=== PATIENT | male | born 1970 | race Asian ===

== ENCOUNTER 2020-07-28 19:50 | Emergency (ER) | payer MEDICAID ==
[~2020-07-28] VITALS: Ht 160 cm; Wt 63.0 kg
--- NOTE | 2020-07-29 00:07 | PHYS DOC ---
Past Medical History Past Medical History: No Pertinent History Past Surgical History: No Surgical History Smoking Status: Never Smoker Alcohol Use: Occasionally General Adult EDM: Chief Complaint: COUGH HPI: HPI: Patient is a 50 year old male who is on no prescription medications presents for evaluation of cough. Patient states he had a cough without sputum production for 1 month. Patient states over the last 4 days he has had a cough with sputum production. Patient denies any fever chills runny nose stuffy nose chest pain or shortness of breath. On exam patient's vital signs are stable he is not hypoxic with oxygen saturations 100% on room air. Review of Systems: Review of Systems: Constitutional: Denies fever or chills. [] Eyes: Denies change in visual acuity. [] HENT: Denies nasal congestion or sore throat. [] Respiratory: Denies shortness of breath. [Positive cough] Cardiovascular: Denies chest pain or edema. [] GI: Denies abdominal pain, nausea, vomiting, bloody stools or diarrhea. [] : Denies dysuria. [] Musculoskeletal: Denies back pain or joint pain. [] Integument: Denies rash. [] Neurologic: Denies headache, focal weakness or sensory changes. [] Endocrine: Denies polyuria or polydipsia. [] Lymphatic: Denies swollen glands. [] Psychiatric: Denies depression or anxiety. [] Heart Score: Risk Factors: Risk Factors: DM, Current or recent (<one month) smoker, HTN, HLP, family history of CAD, obesity. Risk Scores: Score 0 - 3: 2.5% MACE over next 6 weeks - Discharge Home Score 4 - 6: 20.3% MACE over next 6 weeks - Admit for Clinical Observation Score 7 - 10: 72.7% MACE over next 6 weeks - Early Invasive Strategies Physical Exam: PE: Constitutional: Well developed, well nourished, no acute distress, non-toxic appearance. [] HENT: Normocephalic, atraumatic, bilateral external ears normal, oropharynx moist, no oral exudates, nose normal. [] Eyes: PERRLA, EOMI, conjunctiva normal, no discharge. [] Neck: Normal range of motion, no tenderness, supple, no stridor. [] Cardiovascular:Heart rate regular rhythm, no murmur [] Lungs & Thorax: Bilateral breath sounds clear to auscultation [] Abdomen: Bowel sounds normal, soft, no tenderness, no masses, no pulsatile masses. [] Skin: Warm, dry, no erythema, no rash. [] Back: No tenderness, no CVA tenderness. [] Extremities: No tenderness, no cyanosis, no clubbing, ROM intact, no edema. [] Neurologic: Alert and oriented X 3, normal motor function, normal sensory function, no focal deficits noted. [] Psychologic: Affect normal, judgement normal, mood normal. [] Current Patient Data: Vital Signs: Vital Signs Date Time Temp Pulse Resp B/P (MAP) Pulse Ox O2 Delivery O2 Flow Rate FiO2 07/28/20 21:10 97.9 84 16 108/69 (82) 98 Room Air 97.9 EKG: EKG: [] Radiology/Procedures: Radiology/Procedures: [] Impression: martita view of chest obtained. Mild interstitial prominence bilaterally. Cardiac mediastinal silhouette is mildly prominent but likely exaggerated by portable technique. No gross osseous destructive lesion. IMPRESSION: * Mild interstitial prominence bilaterally. Mild pulmonary vascular congestion or interstitial infiltrate could have this appearance. Course & Med Decision Making: Course & Med Decision Making Pertinent Labs and Imaging studies reviewed. (See chart for details) [] Patient was evaluated for chief complaint. Work-up consisted of laboratory analysis and radiologic imaging. X-ray infiltrate versus vascular congestion. Covid test obtained and pending BNP within normal limits. Patient was discharged home with Zithromax and Robitussin with codeine. Patient given COVID-19 PUI precautions. Gayla Disclaimer: Gayla Disclaimer: This electronic medical record was generated, in whole or in part, using a voice recognition dictation system. Departure Departure Impression: Primary Impression: Cough Additional Impression: Person under investigation for COVID-19 Disposition: 01 DC HOME SELF CARE/HOMELESS Condition: STABLE Referrals: NO PCP (PCP) Patient Instructions: Cough, Adult, Viral Syndrome Additional Instructions: You have been tested for or diagnosed with COVID-19. It is an infection caused by a new type of coronavirus. COVID-19 will cause cold-like or mild flu symptoms in most. It can cause more severe symptoms like problems breathing in some. There is no treatment for COVID-19. The body will clear the infection over time. Self-care will help to ease discomfort. Steps to Take: Self-Care Rest as needed. Healthy habits may help you feel better. Steps include: Choose healthy foods including fruits and vegetables. Drink water throughout the day. Get plenty of sleep each night. If you smoke, try to quit. It may ease breathing. Avoid alcohol. Keep Others Healthy The virus can spread to others. Droplets are released every time you sneeze or cough. The droplets can get into the mouth, nose, or eyes of people near you and lead to infection. To lower the chances of spreading COVID-19 to others: Stay at home until your doctor has said it is safe to leave. If you tested positive this will mean staying isolated until both of the following are true: At least 7 days have passed since the start of illness. You are free of fever for at least 72 hours without the use of medicine. During this time: - Avoid public areas, events, or transportation. Do not return to work or school until your doctor has said it is safe to do so. - Call ahead if you need to go to a medical center. Let them know you may have COVID-19. It will help them guide you where to go. They may also ask you to wear a facemask when you come to the office. - If you call for emergency medical services, let them know you may have COVID- 19. While at home: - Try to avoid close contact with others. Stay about 6 feet away. - If possible, spend most of your time in a separate room from others. - Use a face mask if you will be in close contact with others such as sharing a room or vehicle. - Have someone wipe down common surfaces in the home. Use household territory account manager every day on areas like doorknobs, counters, or sinks. - Cough or sneeze into a tissue. Throw the tissue away right after use. If a tissue is not available, cough or sneeze into your elbow. - Wash your hands often. Wash them after sneezing or coughing. Use soap and w ater and wash for at least 20 seconds. Alcohol based hand bus cleaner can be used if soap and water is not available. - Do not prepare food for others. Avoid sharing personal items like forks, spoons, or toothbrushes. - Avoid close contact with pets while you are sick. There is no evidence of the virus passing to pets. This is a safety step until more is known about this virus. Isolation can be frustrating. Social interaction can help. Keep in touch with friends and family through phone and tech options. You can still interact with others in your home, just keep a safe distance of about 6 feet. Follow-up: Your doctors office will check in with you to see if there are any changes in your health. You may be asked to keep track of symptoms to share with them. They will also let you know when you are clear to be in public again. Problems to Look Out For: Contact your doctor if your recovery is not going as you expect. Get emergency care if you have problems such as: - Trouble breathing - Nonstop chest pain or pressure - Changes in awareness, confusion, or problems waking - Lips or face have bluish color - Worsening of symptoms If you think you have an emergency, call for emergency medical services right away. As taken from [facility] [place] Health Scripts Guaifenesin/Codeine Phosphate (Codeine-Guaifen 10-100 mg/5 ml) 120 Ml Liquid 5 ML PO PRN Q6HRS PRN for cough and congestion MDD 20 Milliliter(s) for 6 Days, #120 ML 0 Refills Prov: JOSIANE FERNÁNDEZ I DO 07/29/20 Azithromycin (ZITHROMAX) 250 Mg Tablet 1 PKG PO UD, #6 TAB Prov: JOSIANE FERNÁNDEZ I DO 07/29/20 JOSIANE FERNÁNDEZ I DO Jul 29, 2020 00:07
--- NOTE | 2020-07-29 00:41 | RAD ---
INDICATION: Reason: COUGH / Spl. Instructions: / History: COMPARISON: February 2009 FINDINGS: Single view of chest obtained. Mild interstitial prominence bilaterally. Cardiac mediastinal silhouette is mildly prominent but like ly exaggerated by portable technique. No gross osseous destructive lesion. IMPRESSION: * Mild interstitial prominence bilaterally. Mild pulmonary vascular congestion or interstitial infil trate could have this appearance. Electronically signed by: Johan Sellers MD (07/29/2020 12:39 AM) [id number]
[2020-07-29 01:30] LABS: BASO # 0.1 x10^3/uL (0.0-0.2); BASO % 1 % (0-3); EOS # 1.2 x10^3/uL (0.0-0.7); EOS % 14 % (0-3); HEMATOCRIT 45.1 % (39.0-53.0); HEMOGLOBIN 15.5 g/dL (13.0-17.5); LYMPH # 2.8 x10^3/uL (1.0-4.8); LYMPH % 31 % (24-48); MEAN CORPUSCULAR HEMOGLOBIN 31 pg (25-35); MEAN CORPUSCULAR HGB CONC 34 g/dL (31-37); MEAN CORPUSCULAR VOLUME 89 fL (79-100); MONO # 0.8 x10^3/uL (0.0-1.1); MONO % 9 % (0-9); NEUT # 4.1 x10^3/uL (1.8-7.7); NEUT % 46 % (31-73); PLATELET COUNT 278 x10^3/uL (140-400); RED BLOOD COUNT 5.09 x10^6/uL (4.30-5.70); RED CELL DISTRIBUTION WIDTH 12.2 % (11.5-14.5)
[2020-07-29 01:55] LABS: CALCIUM 8.7 mg/dL (8.5-10.1); CREATININE 0.8 mg/dL (0.7-1.3); GFR 102.3; POTASSIUM 3.8 mmol/L (3.5-5.1)
[2020-07-29 02:33] VITALS: BP 144/86
[2020-07-29] MEDS ORDERED: GUAI120L35 PO (02:33)
[2020-07-29] MEDS ORDERED: AZIT250T PO (02:33)
[2020-07-29 05:44] LABS: % BANDS 2 % (0-9); % LYMPHS 31 % (24-48); % MONOS 12 % (0-10)
[2020-07-29 05:45] LABS: % EOS 10 % (0-5); % SEGS 45 % (35-66)
[2020-07-29 05:46] LABS: PLT ESTIMATE ADEQUATE (ADEQUATE)
--- NOTE | 2020-07-30 13:55 | NUR ---
IP: Informed pt of negative COVID test. Pt verbalized understanding.
== END 2020-07-29 02:53 | disposition home or self-care (01) ==
LOC: ER 19:50
DX: R05 Cough (principal); Z20.828 Contact with and (suspected) exposure to other viral communicable diseases
CPT/HCPCS: 36415; 71045; 80048; 83880; 85007; 85025; 99284; C9803; U0003

== ENCOUNTER 2021-07-20 17:19 | Emergency (ER) | payer MEDICAID ==
[~2021-07-20] VITALS: Ht 162.6 cm; Wt 65.0 kg
[~2021-07-20 17:19] MED LIST: AZIT250T PO; GUAI120L35 PO
--- NOTE | 2021-07-20 18:09 | PHYS DOC ---
Past Medical History Past Medical History: No Pertinent History Past Surgical History: No Surgical History Smoking Status: Never Smoker Alcohol Use: Occasionally General Adult EDM: Chief Complaint: SHORTNESS OF BREATH HPI: HPI: Patient is a 51-year-old male who presents to the emergency department for shortness of breath x2 months that worsened tonight. Patient is also reporting a nonproductive cough. He states that he has no medical history. He denies any fevers, current vomiting, nausea, sick exposures, chest pain but states he did vomit today. Review of Systems: Review of Systems: Constitutional: See HPI Respiratory: See HPI Cardiovascular: See HPI GI: See HPI Heart Score: C/O Chest Pain: No Risk Factors: Risk Factors: DM, Current or recent (<one month) smoker, HTN, HLP, family hist ory of CAD, obesity. Risk Scores: Score 0 - 3: 2.5% MACE over next 6 weeks - Discharge Home Score 4 - 6: 20.3% MACE over next 6 weeks - Admit for Clinical Observation Score 7 - 10: 72.7% MACE over next 6 weeks - Early Invasive Strategies Current Medications: Current Medications Medications (Trade) Dose Ordered Sig/Reagan Start Time Stop Time Status Last Admin Dose Admin Albuterol/ Ipratropium (Duoneb) 3 ml 1X ONCE 07/20/21 18:15 07/20/21 18:16 UNV Allergies: Allergies: Allergies Coded Allergies Type Severity Reaction Last Updated Verified No Known Drug Allergies 07/20/21 No Physical Exam: PE: Constitutional: Well developed, well nourished, no acute distress, non-toxic gino earance. [] HENT: Normocephalic, atraumatic, bilateral external ears normal, oropharynx moist, no oral exudates, nose normal. [] Eyes: PERRL, EOMI, conjunctiva normal, no discharge. [] Neck: Normal range of motion, no tenderness, supple, no stridor. [] Cardiovascular:Heart rate tachycardic with a rate of 101 rhythm, no murmur [] Lungs & Thorax: Wheezing noted throughout Abdomen: Bowel sounds normal, soft, no tenderness, no masses, no pulsatile masses. [] Skin: Warm, dry, no erythema, no rash. [] Back: Normal range of motion Extremities: No tenderness, no cyanosis, no clubbing, ROM intact, no edema. [] Neurologic: Alert and oriented X 3, normal motor function, normal sensory function, no focal deficits noted. [] Psychologic: Affect normal, judgement normal, mood normal. [] Current Patient Data: Labs: Laboratory Tests Test 07/20/21 18:26 07/20/21 18:32 07/20/21 19:10 Influenza Type A Antigen Negative Influenza Type B Antigen Negative White Blood Count 9.4 x10^3/uL Red Blood Count 5.11 x10^6/uL Hemoglobin 15.9 g/dL Hematocrit 46.5 % Mean Corpuscular Volume 91 fL Mean Corpuscular Hemoglobin 31 pg Mean Corpuscular Hemoglobin Concent 34 g/dL Red Cell Distribution Width 12.3 % Platelet Count 246 x10^3/uL Neutrophils (%) (Auto) 57 % Lymphocytes (%) (Auto) 23 % Monocytes (%) (Auto) 8 % Eosinophils (%) (Auto) 12 % Basophils (%) (Auto) 1 % Neutrophils # (Auto) 5.4 x10^3/uL Lymphocytes # (Auto) 2.2 x10^3/uL Monocytes # (Auto) 0.7 x10^3/uL Eosinophils # (Auto) 1.1 x10^3/uL Basophils # (Auto) 0.1 x10^3/uL Platelet Estimate Pending Sodium Level 140 mmol/L Potassium Level 3.9 mmol/L Chloride Level 105 mmol/L Carbon Dioxide Level 27 mmol/L Anion Gap 8 Blood Urea Nitrogen 15 mg/dL Creatinine 0.9 mg/dL Estimated GFR (Cockcroft-Gault) 89.0 Glucose Level 108 mg/dL Calcium Level 7.7 mg/dL Current Medications Medications (Trade) Dose Ordered Sig/Reagan Route PRN Reason Start Time Stop Time Status Last Admin Dose Admin Albuterol/ Ipratropium (Duoneb) 3 ml 1X ONCE NEB 07/20/21 18:15 07/20/21 18:16 DC 07/20/21 18:20 Sodium Chloride 1,000 ml @ 1,000 mls/hr 1X ONCE IV 07/20/21 18:15 07/20/21 19:14 DC 07/20/21 18:37 Vital Signs: Vital Signs Date Time Temp Pulse Resp B/P (MAP) Pulse Ox O2 Delivery O2 Flow Rate FiO2 07/20/21 17:34 97.9 107 24 150/100 (117) 95 Room Air 97.9 EKG: EKG: [] Radiology/Procedures: Radiology/Procedures: []PROCEDURE: PORTABLE CHEST 1V INDICATION: Reason: soa / Spl. Instructions: / History: COMPARISON: July 29, 2020 FINDINGS: Single view of chest obtained. Mild right-sided perihilar opacity as well as subtle left basilar airspace opacity. Cardiac silhouette unremarkable given portable technique IMPRESSION: * Mild left basilar and right perihilar opacity which could be secondary to atelectasis or mild infiltrate Electronically signed by: Beto Sellers MD (07/20/2021 6:22 PM) DESKTOP- [id number] DICTATED and SIGNED BY: BETO SELLERS MD DATE: 07/20/21 [id number] 0 Course & Med Decision Making: Course & Med Decision Making Pertinent Labs and Imaging studies reviewed. (See chart for details) [] Patient presents to the emergency department for shortness of breath and a cough x2 months. Patient reports that he did vomit. He denies any current nausea or vomiting. He is noted to have wheezing and this was treated with a breathing treatment. Blood work and a chest x-ray was performed. Patient is also tested for influenza and COVID-19. . Influenza test was p patient be notified of COVID-19 results when they become available in about 1 to 2 days and he is advised to self isolate until he receives these. Patient was mildly tachycardic and this was treated with IV fluids. Patient's blood work was unremarkable. He had a negative influenza test. Chest x-ray showed mild left basilar and right perihilar infiltrate. Following treatment in the emergency department, his heart rate has improved to 92 bpm. Patient's wheezing has improved after breathing treatment he reports improvement in his symptoms. Patient be discharged home with an antibiotic and albuterol inhaler. Advised to purchase a pulse oximeter to monitor oxygen saturations and return if they drop below 90%.. Covid test pending and he will be notified via telephone of results when they become available. He is advised to self isolate until he receives these results. Patient's vital signs are stable, he is in no acute distress. I discussed with patient all findings and diagnostic testing as well as the need to follow-up with PCP for further evaluation and treatment or return to the ER if any new or worsening symptoms. Strict return precautions were also discussed at length. Patient voiced understanding and agreement with the plan. Patient is hemodynamically stable at the time of disposition. Gayla Disclaimer: Gayla Disclaimer: This electronic medical record was generated, in whole or in part, using a voice recognition dictation system. Departure Departure Impression: Primary Impression: Pneumonia Qualified Codes: J18.9 - Pneumonia, unspecified organism Additional Impression: Person under investigation for COVID-19 Disposition: HOME / SELF CARE / HOMELESS Condition: GOOD Referrals: NO PCP (PCP) Patient Instructions: Pneumonia, Adult Additional Instructions: You were seen in the emergency department for cough and shortness of breath. Your rapid influenza test was negative. Your blood work was reassuring. Your chest x-ray did show pneumonia and you will be treated with antibiotic. Please start and finish the antibiotic completely. We tested you for COVID-19 you will be notified of your results when they become available in approximately 1 to 2 days. Please self isolate until you receive these results. Increase your fluids and rest. For any pain or fevers you can take Tylenol and/or ibuprofen. You are being discharged home with an albuterol inhaler that you can use as directed when you feel short of breath. I would advise you to purchase a pulse oximeter and monitor your oxygen saturations and your heart rate at home. Please return to the emergency department if your oxygen saturation drops below 90%. Follow-up with your primary care provider on Thursday. Please return to the emergency department if you develop increased shortness of breath, chest pain, high fevers refractory to treatment, intractable nausea or vomiting, severe weakness. Scripts Albuterol Sulfate (Proair Hfa) 8.5 Gm Hfa.aer.ad 2 PUFF IH PRN Q4-6HRS PRN for wheezing for 21 Days, #1 INHALER 0 Refills Prov: GILMAR BESS MICROWAVE TECHNICIAN 07/20/21 Azithromycin (AZITHROMYCIN TABLET) 250 Mg Tablet 1 PKG PO UD for 5 Days, #6 TAB 0 Refills 2 the first day followed by 1 for days 2-5 Prov: GILMAR BESS MICROWAVE TECHNICIAN 07/20/21 GILMAR BESS APRN Jul 20, 2021 18:09
[2021-07-20] MEDS ORDERED: IV NORMAL SALINE 1000ML BAG 1,000 ML IV ONE (18:15)
[2021-07-20] MEDS ORDERED: IPRATRPIUM/ALBUTEROL 0.5/2.5MG 3 ML NEBU. NEB ONE (18:15)
--- NOTE | 2021-07-20 18:25 | RAD ---
INDICATION: Reason: soa / Spl. Instructions: / History: COMPARISON: July 29, 2020 FINDINGS: Single view of chest obtained. Mild right-sided perihilar opacity as well as subtle left basilar airspace opacity. Cardiac silhouette unremarkable given portable technique IMPRESSION: * Mild left basilar and right perihilar opacity which could be secondary to atelectasis or mild infi ltrate Electronically signed by: Johan Sellers MD (07/20/2021 6:22 PM) [id number]
[2021-07-20 18:40] LABS: BASO # 0.1 x10^3/uL (0.0-0.2); BASO % 1 % (0-3); EOS # 1.1 x10^3/uL (0.0-0.7); EOS % 12 % (0-3); HEMATOCRIT 46.5 % (39.0-53.0); HEMOGLOBIN 15.9 g/dL (13.0-17.5); LYMPH # 2.2 x10^3/uL (1.0-4.8); LYMPH % 23 % (24-48); MEAN CORPUSCULAR HEMOGLOBIN 31 pg (25-35); MEAN CORPUSCULAR HGB CONC 34 g/dL (31-37); MEAN CORPUSCULAR VOLUME 91 fL (79-100); MONO # 0.7 x10^3/uL (0.0-1.1); MONO % 8 % (0-9); NEUT # 5.4 x10^3/uL (1.8-7.7); NEUT % 57 % (31-73); PLATELET COUNT 246 x10^3/uL (140-400); RED BLOOD COUNT 5.11 x10^6/uL (4.30-5.70); RED CELL DISTRIBUTION WIDTH 12.3 % (11.5-14.5); WHITE BLOOD COUNT 9.4 x10^3/uL (4.0-11.0)
[2021-07-20 19:10] VITALS: BP 145/97
[2021-07-20 19:19] LABS: INFLUENZA A PATIENT NEGATIVE (NEGATIVE); INFLUENZA B PATIENT NEGATIVE (NEGATIVE)
[2021-07-20 19:26] LABS: CALCIUM 7.7 mg/dL (8.5-10.1); CREATININE 0.9 mg/dL (0.7-1.3); POTASSIUM 3.9 mmol/L (3.5-5.1)
[2021-07-20] MEDS ORDERED: AZIT250T6 PO (19:35)
[2021-07-20] MEDS ORDERED: ALBU2.5V8 IH (19:35)
[2021-07-20 20:07] LABS: % BASOS 1 % (0-3); % EOS 8 % (0-5); % LYMPHS 24 % (24-48); % MONOS 7 % (0-10); % SEGS 60 % (35-66); PLT ESTIMATE ADEQUATE (ADEQUATE)
--- NOTE | 2021-07-22 17:04 | NUR ---
IP: Informed pt of negative covid test. Pt verbalized understanding.
== END 2021-07-20 19:43 | disposition home or self-care (01) ==
LOC: ER 17:19
DX: J18.9 Pneumonia, unspecified organism (principal); Z20.822 Contact with and (suspected) exposure to COVID-19
CPT/HCPCS: 36415; 71045; 80048; 85007; 85025; 87804; 94640; 96360; 99284; J7030; U0003; U0005